=== PATIENT | female | born 1965 | race Caucasian/White ===

== ENCOUNTER 2018-06-15 10:10 | Inpatient (IN) ==
[2018-06-15] MEDS ORDERED: POTASSIUM CHLORIDE RIDER 20 MEQ in PREMIX 1 EACH IV STA (13:30)
[2018-06-15] MEDS ORDERED: LACTATED RINGERS 1,000 ML IV ONE (13:30)
[2018-06-15] MEDS ORDERED: ONDANSETRON 4 MG/2 ML VIAL IV STA (13:30)
[2018-06-15 14:59] LABS: Basophils # 0.1 10*3/uL (0.0-0.2); Basophils % 0.8 % (0.0-0.8); Eosinophils # 0.1 10*3/uL (0.0-0.87); Eosinophils % 0.9 % (0.00-10.9); Hematocrit 37.5 VOL% (35.7-47.0); Hemoglobin 13.2 GM/DL (12.0-16.0); Immature Granulocytes % 0.6 %; Immature Granulocytes Absolute 0.04 #; Lymphocytes # 1.6 10*3/uL (1.4-4.0); Lymphocytes % 23.8 % (21.3-54.2); Mean Corpuscular HGB Conc 35.2 GM/DL (32-36); Mean Corpuscular Hemoglobin 30 PG (27-34); Monocytes # 0.7 10*3/uL (0.11-0.8); Monocytes % 10.4 % (1.7-12.7); Neutrophils # 4.2 10*3/uL (1.4-7.4); Neutrophils % 63.5 % (38.7-73.9); Platelet Count 252 T/CUMM (130-400); Red Blood Count 4.36 MC/CUMM (3.8-5.5); Red Cell Distribution Width 13.9 % (9.3-17.3); White Blood Count 6.6 T/CUMM (4-12)
[2018-06-15 15:17] LABS: Calcium 9.1 MG/DL (8.5-10.1); Osmolality,Calculated 281.2 MOS/KG (273-304); Potassium 2.6 MMOL/L (3.5-5.1)
[2018-06-15] MEDS: POTASSIUM CHLORIDE RIDER 10 MEQ in PREMIX 1 EACH IV SCH ×2 (15:26→18:24)
[2018-06-15] MEDS ORDERED: ONDANSETRON 4 MG/2 ML VIAL IV PRN (16:00)
[2018-06-15] MEDS ORDERED: traZODone 50 MG TABLET PO PRN (16:00)
[2018-06-15] MEDS ORDERED: metOLazone 5 MG TABLET PO PRN (17:34)
[2018-06-15] MEDS ORDERED: POTASSIUM CHLORIDE 20 MEQ PACK PO PRN (17:34)
[2018-06-15] MEDS ORDERED: FUROSEMIDE 80 MG TABLET PO PRN (17:34)
[2018-06-15] MEDS ORDERED: SPIRONOLACTONE 25 MG TABLET PO PRN (17:34)
[2018-06-15] MEDS ORDERED: DEXTROSE 50% 25 GM/50 ML VIAL IV PRN (17:47)
[2018-06-15] MEDS ORDERED: GLUCAGON 1 MG VIAL IM PRN (17:47)
[2018-06-15] MEDS ORDERED: POTASSIUM CHLORIDE 20 MEQ TABLET PO PRN (17:49)
[2018-06-15] MEDS ORDERED: POTASSIUM CHLORIDE RIDER 100 ML IV ONE (18:08)
[2018-06-15] MEDS: ENOXAPARIN 30 MG/0.3 ML SYRINGE SUBCUT SCH (18:15)
[2018-06-15] MEDS: SODIUM CHLORIDE 0.9% 1,000 ML IV SCH (18:15)
[2018-06-15 20:12] LABS: Apearance,Urine CLOUDY (Clear); Bacteria,Urine Occasional /HPF (Few); Bilirubin,Urine Negative (Negative); Blood, Urine Negative (Negative); Glucose,Urine (UA) 50 mg/dL (Negative); Hyaline Casts,Urine 5 /LPF (0-3); Ketones,Urine 5 mg/dL (Negative); Mucus,Urine Occasional /LPF (Occasional); Nitrite,Urine Negative (Negative); Protein,Urine 100 MG/DL; RBC,Urine 6 /HPF (0-4); Squamous Epithelial Cell,Urine Occasional /HPF (0-10); Urine Color Yellow (Yellow); Urine Specific Gravity 1.013 (1.001-1.035); Urine Urobilinogen < 2.0 EU/DL (0.2-1.0); WBC,Urine 21 /HPF (0-6)
[2018-06-15] MEDS: ACETAMINOPHEN 325 MG TABLET PO PRN (21:04)
[2018-06-15] MEDS: CALCIUM (CARBONATE)/VITAMIN D 600 MG-400 UNIT TABLET PO SCH (21:06)
[2018-06-15] MEDS: INSULIN REGULAR 100 UNIT/ML SUBCUT SCH (21:06)
[2018-06-16 05:40] LABS: Basophils # 0.1 10*3/uL (0.0-0.2); Basophils % 0.9 % (0.0-0.8); Eosinophils # 0.2 10*3/uL (0.0-0.87); Eosinophils % 4.1 % (0.00-10.9); Hematocrit 32.2 VOL% (35.7-47.0); Hemoglobin 11.1 GM/DL (12.0-16.0); Immature Granulocytes % 0.4 %; Immature Granulocytes Absolute 0.02 #; Lymphocytes # 1.9 10*3/uL (1.4-4.0); Lymphocytes % 32.8 % (21.3-54.2); Mean Corpuscular HGB Conc 34.5 GM/DL (32-36); Mean Corpuscular Hemoglobin 30 PG (27-34); Mean Corpuscular Volume 87.3 FL (87-102); Mean Platelet Volume 10.5 FL (9.6-12.0); Monocytes # 0.8 10*3/uL (0.11-0.8); Monocytes % 14.1 % (1.7-12.7); Neutrophils # 2.7 10*3/uL (1.4-7.4); Neutrophils % 47.7 % (38.7-73.9); Platelet Count 200 T/CUMM (130-400); Red Blood Count 3.69 MC/CUMM (3.8-5.5); Red Cell Distribution Width 14.1 % (9.3-17.3); White Blood Count 5.7 T/CUMM (4-12)
[2018-06-16 05:43] LABS: Calcium 8.6 MG/DL (8.5-10.1); Osmolality,Calculated 285.7 MOS/KG (273-304); Thyroid Stimulating Hormone 1.71 uIU/ml (0.358-3.74)
[2018-06-16 05:50] LABS: Potassium 2.5 MMOL/L (3.5-5.1)
[2018-06-16] MEDS: INSULIN REGULAR 100 UNIT/ML SUBCUT SCH ×4 (07:30→21:21)
[2018-06-16] MEDS: SODIUM CHLORIDE 0.9% 1,000 ML IV SCH (08:39)
[2018-06-16] MEDS: CALCIUM (CARBONATE)/VITAMIN D 600 MG-400 UNIT TABLET PO SCH ×2 (08:51→21:03)
[2018-06-16] MEDS: ATORVASTATIN 10 MG TABLET PO SCH (08:51)
[2018-06-16] MEDS: DILTIAZEM CD 120 MG CAPSULE PO SCH (08:51)
[2018-06-16] MEDS: ACETAMINOPHEN 325 MG TABLET PO PRN (08:52)
[2018-06-16] MEDS: PANTOPRAZOLE 40 MG TABLET PO SCH (08:52)
[2018-06-16] MEDS: POTASSIUM CHLORIDE RIDER 10 MEQ in PREMIX 1 EACH IV PRN ×4 (08:55→17:18)
[2018-06-16] MEDS ORDERED: ERGOCALCIFEROL 50,000 UNIT CAPSULE PO SCH (09:00)
[2018-06-16] MEDS ORDERED: PANTOPRAZOLE 40 MG TABLET PO SCH (09:00)
[2018-06-16] MEDS: cefTRIAXone 1,000 MG in SYRINGE 1 EACH IV SCH (10:51)
[2018-06-16] MEDS ORDERED: POTASSIUM CHLORIDE 20 MEQ/15 ML UDCUP PO ONE (14:42)
[2018-06-16] MEDS: ENOXAPARIN 30 MG/0.3 ML SYRINGE SUBCUT SCH (17:12)
[2018-06-17 05:30] LABS: Basophils # 0.1 10*3/uL (0.0-0.2); Basophils % 1.1 % (0.0-0.8); Eosinophils # 0.2 10*3/uL (0.0-0.87); Eosinophils % 5.4 % (0.00-10.9); Hematocrit 29.8 VOL% (35.7-47.0); Hemoglobin 9.8 GM/DL (12.0-16.0); Immature Granulocytes % 0.4 %; Immature Granulocytes Absolute 0.02 #; Lymphocytes # 1.6 10*3/uL (1.4-4.0); Lymphocytes % 35.7 % (21.3-54.2); Mean Corpuscular HGB Conc 32.9 GM/DL (32-36); Mean Corpuscular Hemoglobin 30 PG (27-34); Mean Corpuscular Volume 90.3 FL (87-102); Monocytes # 0.6 10*3/uL (0.11-0.8); Monocytes % 13.6 % (1.7-12.7); Neutrophils % 43.8 % (38.7-73.9); Platelet Count 209 T/CUMM (130-400); Red Cell Distribution Width 14.1 % (9.3-17.3); White Blood Count 4.5 T/CUMM (4-12)
[2018-06-17 05:55] LABS: Calcium 8.4 MG/DL (8.5-10.1); Osmolality,Calculated 289.1 MOS/KG (273-304)
[2018-06-17] MEDS: SODIUM CHLORIDE 0.9% 1,000 ML IV SCH ×2 (07:39→08:17)
[2018-06-17] MEDS: INSULIN REGULAR 100 UNIT/ML SUBCUT SCH ×4 (08:00→21:39)
[2018-06-17] MEDS: cefTRIAXone 1,000 MG in SYRINGE 1 EACH IV SCH (08:10)
[2018-06-17] MEDS: ATORVASTATIN 10 MG TABLET PO SCH (08:11)
[2018-06-17] MEDS: PANTOPRAZOLE 40 MG TABLET PO SCH ×2 (08:11→08:12)
[2018-06-17] MEDS: DILTIAZEM CD 120 MG CAPSULE PO SCH (08:12)
[2018-06-17] MEDS: CALCIUM (CARBONATE)/VITAMIN D 600 MG-400 UNIT TABLET PO SCH ×2 (08:12→21:39)
[2018-06-17] MEDS: ACETAMINOPHEN 325 MG TABLET PO PRN (08:13)
[2018-06-17] MEDS ORDERED: LEFLUNOMIDE 10 MG TABLET PO SCH (09:00)
[2018-06-17] MEDS: POTASSIUM BICARB EFFERVESCENT 25 MEQ TABLET PO SCH ×2 (10:38→21:40)
[2018-06-17] MEDS: SODIUM CHLOR 0.9% KCL 40 MEQ 40 MEQ/1,000 ML BAG IV SCH (13:53)
[2018-06-17] MEDS: SPIRONOLACTONE 25 MG TABLET PO SCH ×2 (13:53→21:39)
[2018-06-17] MEDS: ENOXAPARIN 30 MG/0.3 ML SYRINGE SUBCUT SCH (16:28)
[2018-06-18] MEDS: SODIUM CHLOR 0.9% KCL 40 MEQ 40 MEQ/1,000 ML BAG IV SCH ×2 (02:58→17:59)
[2018-06-18 05:22] LABS: Calcium 8.5 MG/DL (8.5-10.1); Potassium 3.5 MMOL/L (3.5-5.1)
[2018-06-18] MEDS: INSULIN REGULAR 100 UNIT/ML SUBCUT SCH ×3 (09:20→17:59)
[2018-06-18] MEDS: POTASSIUM BICARB EFFERVESCENT 25 MEQ TABLET PO SCH (09:22)
[2018-06-18] MEDS: ATORVASTATIN 10 MG TABLET PO SCH (09:22)
[2018-06-18] MEDS: DILTIAZEM CD 120 MG CAPSULE PO SCH (09:23)
[2018-06-18] MEDS: ACETAMINOPHEN 325 MG TABLET PO PRN (09:23)
[2018-06-18] MEDS: SPIRONOLACTONE 25 MG TABLET PO SCH (09:23)
[2018-06-18] MEDS: PANTOPRAZOLE 40 MG TABLET PO SCH (09:23)
[2018-06-18] MEDS: CALCIUM (CARBONATE)/VITAMIN D 600 MG-400 UNIT TABLET PO SCH (09:23)
[2018-06-18] MEDS: ENOXAPARIN 30 MG/0.3 ML SYRINGE SUBCUT SCH (15:36)
[2018-06-18 18:26] VITALS: BP 139/70
== END 2018-06-18 17:00 | disposition home or self-care (01) | DRG 684 ==
LOC: N.ED 10:10 → N.EDINP 10:10 → SUATTDRO 16:00 → N.5E 18:05
PROVIDERS: ADMIT Internal Medicine; ATTEND Internal Medicine